=== PATIENT | male | born 1980 | race Caucasian/White ===

== ENCOUNTER 2017-06-04 00:25 | Emergency (ER) | payer OTHER ==
[~2017-06-04] VITALS: Ht 180.3 cm; Wt 125.4 kg
[~2017-06-04 00:25] MED LIST changes: -LISI-461 PO
[2017-06-04 00:33] VITALS: TEMP 36.4; Ht 180.3 cm; Wt 125.4 kg
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
[2017-06-04 01:21] LABS: CALCIUM 8.3 mg/dl (8.5-10.1); CREATININE 0.95 mg/dl (0.60-1.40); POTASSIUM 3.6 mmol/L (3.5-5.1)
[2017-06-04] MEDS ORDERED: LISI-461 PO (01:34)
[2017-06-04 02:51] VITALS: BP 160/94; PULSE 95; O2SAT 99
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
== END 2017-06-04 02:50 | disposition home or self-care (01) ==
LOC: EDBD 00:25 → C.EDB 00:27
DX: S93.402A Sprain of unspecified ligament of left ankle, initial encounter (principal); S69.91XA Unspecified injury of right wrist, hand and finger(s), initial encounter; V49.40XA Driver injured in collision with unspecified motor vehicles in traffic accident, initial encounter; F10.10 Alcohol abuse, uncomplicated; F10.129 Alcohol abuse with intoxication, unspecified; Y90.7 Blood alcohol level of 200-239 mg/100 ml

== ENCOUNTER → 2017-06-04 | Outpatient (CLI) | payer OTHER ==
[~2017-06-04] MED LIST: CLX20 PO; LISI-461 PO; OXYC-57 PO; OXYC1TAB3 PO
== END | disposition home or self-care (01) ==
LOC: C.LAB 00:32
DX: Z02.83 Encounter for blood-alcohol and blood-drug test (principal)